=== PATIENT | male | born 2000 | race Two or more races ===

== ENCOUNTER 2022-01-04 21:04 | Emergency (ER) | payer OTHER ==
[~2022-01-04] VITALS: Ht 170.2 cm; Wt 59.1 kg
[2022-01-04 21:07] VITALS: BP 117/69
== END 2022-01-04 22:00 | disposition left against medical advice (07) ==
LOC: EMS 21:14
DX: Z53.21 Procedure and treatment not carried out due to patient leaving prior to being seen by health care provider (principal)

== ENCOUNTER 2022-04-14 01:48 | Emergency (ER) | payer OTHER ==
[~2022-04-14] VITALS: Ht 170.2 cm; Wt 59.1 kg
[2022-04-14 01:52] VITALS: BP 116/85
== END 2022-04-14 04:50 | disposition home or self-care (01) ==
LOC: EMS 01:50
DX: S60.221A Contusion of right hand, initial encounter (principal); W22.8XXA Striking against or struck by other objects, initial encounter; Y93.89 Activity, other specified; Y92.89 Other specified places as the place of occurrence of the external cause; Y99.8 Other external cause status
CPT/HCPCS: 99283